=== PATIENT | male | born 1990 | race Caucasian/White ===

== ENCOUNTER 2020-11-09 18:42 | Emergency (ER) | payer OTHER ==
[~2020-11-09] VITALS: Ht 185.4 cm; Wt 103.6 kg
[~2020-11-09 18:42] MED LIST: DIVA125T31 PO; DIVA250T8 PO
[2020-11-09 20:40] VITALS: BP 134/82
== END 2020-11-09 20:40 | disposition home or self-care (01) ==
LOC: ER 18:43
DX: F07.81 Postconcussional syndrome (principal); R51.9 Headache, unspecified; M54.2 Cervicalgia; R42 Dizziness and giddiness; Z79.899 Other long term (current) drug therapy
CPT/HCPCS: 99282

== ENCOUNTER 2021-06-05 22:20 | Inpatient (IN) | payer MEDICAID, OTHER ==
[~2021-06-05] VITALS: Ht 182.9 cm; Wt 97.7 kg
[~2021-06-05 22:20] MED LIST changes: +temazepam 15mg capsule PO PRN
[2021-06-05] MEDS ORDERED: ondansetron/PF 4mg/2ml inj IV ONE (22:45)
[2021-06-05] MEDS ORDERED: normal saline 1000ML IV soln IVB ONE ×2 (22:45→23:30)
[2021-06-05 23:02] LABS: ALANINE AMINOTRANSFERASE 23 U/L (12-78); ALBUMIN 3.6 G/DL (3.4-5.0); ALKALINE PHOSPHATASE 51 IU/L (46-116); ANION GAP 13 (8-16); ASPARTATE AMINO TRANSFERASE 18 U/L (10-37); BILIRUBIN,TOTAL 0.3 MG/DL (0.1-1.0); BLOOD UREA NITROGEN 21 MG/DL (7-18); BUN/CREATININE RATIO 5.9 (5.4-32.0); CALCIUM 8.5 MG/DL (8.5-10.1); CHLORIDE 103 MMOL/L (99-107); CREATININE 3.53 MG/DL (0.60-1.10); GLUCOSE 81 MG/DL (70-104); LIPASE 68 U/L (73-393); POTASSIUM 3.7 MMOL/L (3.5-5.1); SODIUM 144 MMOL/L (135-145); TOTAL CARBON DIOXIDE 28.5 MMOL/L (24-32); TOTAL PROTEIN 7.1 G/DL (6.4-8.2); eGFR 21 ML/MIN
[2021-06-05] MEDS: morphine 4 MG/ML inj SYRINge IV PRN (23:05)
[2021-06-05 23:14] LABS: BASOPHILS % (AUTO) 0.6 % (0-1); EOSINOPHILS # (AUTO) 0.2 X10'3 (0-0.9); EOSINOPHILS % (AUTO) 3.2 % (0-6); HEMATOCRIT 43.4 % (42.0-52.0); HEMOGLOBIN 14.7 g/dl (14.0-17.9); LYMPHOCYTES # (AUTO) 1.9 X10'3 (1.1-4.8); LYMPHOCYTES % (AUTO) 25.5 % (21-51); MEAN CORPUSCULAR HEMOGLOBIN 29.5 PG (27.0-31.0); MEAN CORPUSCULAR HGB CONC 33.8 g/dL (33.0-36.5); MEAN CORPUSCULAR VOLUME 87.2 FL (78-98); MEAN PLATELET VOLUME 6.7 FL (7.4-10.4); MONOCYTES # (AUTO) 0.7 X10'3 (0-0.9); MONOCYTES % (AUTO) 9.2 % (2-12); NEUTROPHILS # (AUTO) 4.5 X10'3 (1.8-7.7); NEUTROPHILS % (AUTO) 61.5 % (42-75); PLATELET COUNT 258 X10'3 (140-440); RED BLOOD COUNT 4.98 X10'6 (4.70-6.10); RED CELL DISTRIBUTION WIDTH 13.8 % (11.5-14.5); WHITE BLOOD COUNT 7.3 X10'3 (4.5-11.0)
[2021-06-05] MEDS ORDERED: famotidine/PF 10 mg/ml inj IV ONE (23:30)
[2021-06-05] MEDS ORDERED: pantoprazole 40 MG vial IV ONE (23:30)
[2021-06-05] MEDS ORDERED: ondansetron 4mg rapidly disintigrating tab PO PRN (23:50)
[2021-06-05] MEDS ORDERED: bisacodyl 10mg suppository rectal RC PRN (23:50)
[2021-06-05] MEDS ORDERED: mag hydrox/Alum hydrox/simeth 30ml oral suspension PO PRN (23:50)
[2021-06-05] MEDS ORDERED: diphenhydrAMINE 25mg capsule PO PRN (23:50)
[2021-06-05] MEDS ORDERED: diphenhydrAMINE 50 mg/ml inj IV PRN (23:50)
[2021-06-05] MEDS ORDERED: acetaminophen 325mg tablet PO PRN ×2 (23:50)
[2021-06-05] MEDS ORDERED: HYDROmorphone inj. 0.5 MG/0.5 ML DISP.SYRIN IV PRN (23:50)
[2021-06-05] MEDS ORDERED: HYDROcodone/acetaminophen 5mg/325mg tablet PO PRN (23:50)
[2021-06-05] MEDS ORDERED: morphine 2 MG/ML inj. syringe IV PRN (23:50)
[2021-06-05] MEDS ORDERED: magnesium hydroxide 30ml (MOM) UD suspension PO PRN (23:50)
[2021-06-06 00:17] LABS: CREATINE KINASE 191 U/L (39-308); TROPONIN I < 0.04 NG/ML (0.0-0.05); VALPROATE 10 UG/ML (50-100)
[2021-06-06] MEDS: normal saline 1000ml 1,000 ML IV SCH ×3 (00:36→16:58)
[2021-06-06 00:53] LABS: PARTIAL THROMBOPLASTIN TIME 29 SECONDS (22-32)
[2021-06-06 00:54] LABS: C-REACTIVE PROTEIN 2.72 MG/DL (0.0-0.5); HEMOGLOBIN A1C 5.7 % (4.5-6.2); MAGNESIUM 2.1 MG/DL (1.5-2.4); PHOSPHORUS 4.8 MG/DL (2.3-4.5)
[2021-06-06] MEDS ORDERED: pantoprazole 40MG/NS 100ML BAG 100 ML IV ONE (01:00)
[2021-06-06 01:01] LABS: HIV ANTIBODY 1&2 RAPID NON-REACTIVE (Neg)
[2021-06-06 01:05] LABS: URINE AMPHETAMINE SCREEN NEGATIVE (Neg); URINE BARBITUATE SCREEN NEGATIVE (Neg); URINE BENZODIAZEPINES SCREEN NEGATIVE (Neg); URINE CANNABINOID SCREEN NEGATIVE (Neg); URINE COCAINE SCREEN NEGATIVE (Neg); URINE METHADONE SCREEN NEGATIVE (Neg); URINE OPIATE SCREEN POSITIVE (Neg); URINE PHENCYCLIDINE SCREEN NEGATIVE (Neg)
[2021-06-06 01:07] LABS: CLARITY,URINE CLEAR (Clear); COLOR,URINE YELLOW (Yellow); UA COLLECTION TYPE CLN CATCH MIDSTREAM
[2021-06-06 01:08] LABS: GLUCOSE, URINE NEGATIVE (Neg); KETONES,URINE NEGATIVE (Neg); LEUKOCYTE ESTERASE ,URINE NEGATIVE (Neg); NITRITES, URINE NEGATIVE (Neg); OCCULT BLOOD,URINE NEGATIVE (Neg); PROTEIN,URINE NEGATIVE (Neg); UROBILINOGEN,URINE 0.2 E.U/dL (0.2-1.0)
[2021-06-06] MEDS: morphine 4 MG/ML inj SYRINge IV PRN (02:24)
[2021-06-06] MEDS ORDERED: DULO60CA65 PO (06:16)
--- NOTE | 2021-06-06 06:34 | NUR ---
Received report from CONCETTA Bertrand. Awaiting patient arrival.
[2021-06-06 07:30] VITALS: BP 138/86
[2021-06-06] MEDS: duloxetine 30mg CAPSULE.DR PO SCH (07:52)
[2021-06-06] MEDS: docusate sod 100mg capsule PO SCH ×2 (07:52→19:47)
[2021-06-06] MEDS: HYDROcodone/acetaminophen 10/325mg tab PO PRN ×4 (07:57→22:25)
[2021-06-06] MEDS ORDERED: pantoprazole 40 MG vial IV SCH (08:00)
[2021-06-06] MEDS: heparin, porcine 5000 units/ml vial SQ SCH ×2 (08:00→19:49)
[2021-06-06] MEDS: divalproex sod 250mg ER (24-hour) tablet PO SCH ×2 (08:28→19:48)
[2021-06-06 09:43] LABS: BASOPHILS % (AUTO) 0.7 % (0-1); EOSINOPHILS # (AUTO) 0.2 X10'3 (0-0.9); EOSINOPHILS % (AUTO) 3.2 % (0-6); HEMATOCRIT 42.7 % (42.0-52.0); HEMOGLOBIN 14.3 g/dl (14.0-17.9); LYMPHOCYTES # (AUTO) 1.5 X10'3 (1.1-4.8); LYMPHOCYTES % (AUTO) 22.2 % (21-51); MEAN CORPUSCULAR HEMOGLOBIN 29.6 PG (27.0-31.0); MEAN CORPUSCULAR HGB CONC 33.5 g/dL (33.0-36.5); MEAN CORPUSCULAR VOLUME 88.3 FL (78-98); MEAN PLATELET VOLUME 6.7 FL (7.4-10.4); MONOCYTES # (AUTO) 0.7 X10'3 (0-0.9); NEUTROPHILS # (AUTO) 4.2 X10'3 (1.8-7.7); NEUTROPHILS % (AUTO) 62.9 % (42-75); PLATELET COUNT 242 X10'3 (140-440); RED BLOOD COUNT 4.84 X10'6 (4.70-6.10); RED CELL DISTRIBUTION WIDTH 14.3 % (11.5-14.5); WHITE BLOOD COUNT 6.7 X10'3 (4.5-11.0)
[2021-06-06 10:02] LABS: ALANINE AMINOTRANSFERASE 19 U/L (12-78); ALBUMIN 3.2 G/DL (3.4-5.0); ALBUMIN/GLOBULIN RATIO 0.8 (1.1-1.5); ALKALINE PHOSPHATASE 46 IU/L (46-116); ANION GAP 8 (8-16); ASPARTATE AMINO TRANSFERASE 14 U/L (10-37); BILIRUBIN,TOTAL 0.5 MG/DL (0.1-1.0); BLOOD UREA NITROGEN 21 MG/DL (7-18); BUN/CREATININE RATIO 6.2 (5.4-32.0); CHLORIDE 107 MMOL/L (99-107); CHOL/HDL RATIO 4.1 (0.00-4.99); CHOLESTEROL 131 MG/DL (0-200); GLUCOSE 79 MG/DL (70-104); HDL CHOLESTEROL 32 MG/DL (35-60); LDL CHOLESTEROL 70 MG/DL (50-100); POTASSIUM 4.1 MMOL/L (3.5-5.1); SODIUM 146 MMOL/L (135-145); TOTAL CARBON DIOXIDE 30.6 MMOL/L (24-32); TOTAL PROTEIN 7.2 G/DL (6.4-8.2); TRIGLYCERIDES 150 MG/DL (20-135); eGFR 22 ML/MIN
[2021-06-06 10:04] LABS: CALCIUM 8.6 MG/DL (8.5-10.1)
[2021-06-06] MEDS: ondansetron/PF 4mg/2ml inj IV PRN (10:31)
[2021-06-06 11:00] VITALS: BP 166/100
[2021-06-06] MEDS ORDERED: COVID-19 VACC, MRNA(PFIZER)/PF--BNT162b2 syringe IMVAC ONE (17:25)
[2021-06-06 18:00] VITALS: BP 143/84
--- NOTE | 2021-06-06 18:01 | NUR ---
Problems reprioritized. Patient report given, questions answered & plan of care reviewed with CONCETTA Wagner.
[2021-06-06] MEDS: pantoprazole 40 MG vial IV SCH ×2 (18:55→19:36)
[2021-06-07] VITALS: BP 151/86
[2021-06-07] MEDS: normal saline 1000ml 1,000 ML IV SCH ×4 (00:07→18:58)
[2021-06-07 06:08] LABS: BASOPHILS % (AUTO) 0.8 % (0-1); EOSINOPHILS # (AUTO) 0.3 X10'3 (0-0.9); EOSINOPHILS % (AUTO) 4.1 % (0-6); HEMATOCRIT 43.2 % (42.0-52.0); HEMOGLOBIN 14.4 g/dl (14.0-17.9); LYMPHOCYTES # (AUTO) 1.7 X10'3 (1.1-4.8); LYMPHOCYTES % (AUTO) 26.9 % (21-51); MEAN CORPUSCULAR HEMOGLOBIN 29.4 PG (27.0-31.0); MEAN CORPUSCULAR HGB CONC 33.4 g/dL (33.0-36.5); MEAN CORPUSCULAR VOLUME 88.1 FL (78-98); MEAN PLATELET VOLUME 6.9 FL (7.4-10.4); MONOCYTES # (AUTO) 0.6 X10'3 (0-0.9); MONOCYTES % (AUTO) 9.8 % (2-12); NEUTROPHILS # (AUTO) 3.7 X10'3 (1.8-7.7); NEUTROPHILS % (AUTO) 58.4 % (42-75); PLATELET COUNT 239 X10'3 (140-440); RED CELL DISTRIBUTION WIDTH 14.1 % (11.5-14.5); WHITE BLOOD COUNT 6.4 X10'3 (4.5-11.0)
[2021-06-07 06:24] LABS: ALANINE AMINOTRANSFERASE 16 U/L (12-78); ALBUMIN 2.7 G/DL (3.4-5.0); ALBUMIN/GLOBULIN RATIO 0.8 (1.1-1.5); ALKALINE PHOSPHATASE 45 IU/L (46-116); ANION GAP 8 (8-16); ASPARTATE AMINO TRANSFERASE 11 U/L (10-37); BILIRUBIN,TOTAL 0.3 MG/DL (0.1-1.0); BLOOD UREA NITROGEN 22 MG/DL (7-18); BUN/CREATININE RATIO 7.1 (5.4-32.0); CALCIUM 8.3 MG/DL (8.5-10.1); CHLORIDE 112 MMOL/L (99-107); CREATININE 3.09 MG/DL (0.60-1.10); GLUCOSE 84 MG/DL (70-104); POTASSIUM 4.3 MMOL/L (3.5-5.1); SODIUM 148 MMOL/L (135-145); TOTAL CARBON DIOXIDE 27.8 MMOL/L (24-32); eGFR 24 ML/MIN
[2021-06-07 07:00] VITALS: BP 124/74
[2021-06-07] MEDS: pantoprazole 40 MG vial IV SCH ×2 (07:50→20:00)
[2021-06-07] MEDS: duloxetine 30mg CAPSULE.DR PO SCH (07:51)
[2021-06-07] MEDS: docusate sod 100mg capsule PO SCH ×2 (07:51→20:00)
[2021-06-07] MEDS: divalproex sod 250mg ER (24-hour) tablet PO SCH ×2 (07:51→20:00)
[2021-06-07] MEDS: heparin, porcine 5000 units/ml vial SQ SCH ×2 (07:51→20:00)
[2021-06-07] MEDS: HYDROcodone/acetaminophen 10/325mg tab PO PRN ×3 (07:51→21:44)
[2021-06-07 08:59] LABS: HBSAG SCREEN Negative (Negative); HEP B CORE AB, TOT Negative (Negative); HEPATITIS C ANTIBODY <0.1 s/co ratio (0.0-0.9)
[2021-06-07] MEDS: morphine 2 MG/ML inj. syringe IV PRN ×2 (11:53→18:53)
[2021-06-07] MEDS ORDERED: COVID-19 VACC, MRNA(PFIZER)/PF--BNT162b2 syringe IMVAC ONE (12:00)
[2021-06-07 12:20] VITALS: BP 134/90
--- NOTE | 2021-06-07 13:09 | NUR ---
Renal consult: TC to RN who states pt with JAGDEEP though previously admitted in 2020 and with decreased renal function at that time as well. Per RN pharmacy manager as been consulted this admit. Noted Na 148, BUN 22, creatinine 3.09, and eGFR 24 with Phos 4.8 on 06/06. Informed RN will hold off on educating patient until seen by pharmacy manager to best determine appropriateness in education. Noted patient's renal diet got cancelled upon placement of RD consult, d/w RN recommendation to resume diet order in EMR. Will continue to follow closely. Addendum: 06/07/21 at [address] Amended: Links added.
[2021-06-07 18:00] VITALS: BP 138/83
--- NOTE | 2021-06-07 18:04 | NUR ---
Problems reprioritized. Patient report given, questions answered & plan of care reviewed with CONCETTA Paulson.
--- NOTE | 2021-06-07 18:38 | NUR ---
Patient in room [facility]. I have received report from Clarita HYLTON and had the opportunity to ask questions and assume patient care.
[2021-06-08] VITALS: BP 123/69
[2021-06-08] MEDS: HYDROcodone/acetaminophen 10/325mg tab PO PRN ×3 (00:07→07:28)
[2021-06-08 01:41] LABS: TOTAL PROTEIN,URINE RANDOM < 6.0 MG/DL
[2021-06-08] MEDS: normal saline 1000ml 1,000 ML IV SCH ×2 (03:04→08:35)
[2021-06-08 05:52] LABS: BASOPHILS # (AUTO) 0.1 X10'3 (0-0.2); BASOPHILS % (AUTO) 0.9 % (0-1); EOSINOPHILS # (AUTO) 0.3 X10'3 (0-0.9); EOSINOPHILS % (AUTO) 4.2 % (0-6); HEMATOCRIT 41.1 % (42.0-52.0); HEMOGLOBIN 13.7 g/dl (14.0-17.9); LYMPHOCYTES % (AUTO) 28.7 % (21-51); MEAN CORPUSCULAR HEMOGLOBIN 29.3 PG (27.0-31.0); MEAN CORPUSCULAR HGB CONC 33.2 g/dL (33.0-36.5); MEAN CORPUSCULAR VOLUME 88.2 FL (78-98); MEAN PLATELET VOLUME 6.9 FL (7.4-10.4); MONOCYTES # (AUTO) 0.7 X10'3 (0-0.9); MONOCYTES % (AUTO) 9.7 % (2-12); NEUTROPHILS # (AUTO) 3.9 X10'3 (1.8-7.7); NEUTROPHILS % (AUTO) 56.5 % (42-75); PLATELET COUNT 245 X10'3 (140-440); RED BLOOD COUNT 4.66 X10'6 (4.70-6.10)
[2021-06-08 06:29] LABS: ALANINE AMINOTRANSFERASE 19 U/L (12-78); ALBUMIN 2.9 G/DL (3.4-5.0); ALBUMIN/GLOBULIN RATIO 0.9 (1.1-1.5); ALKALINE PHOSPHATASE 47 IU/L (46-116); ANION GAP 10 (8-16); ASPARTATE AMINO TRANSFERASE 16 U/L (10-37); BILIRUBIN,TOTAL 0.3 MG/DL (0.1-1.0); BLOOD UREA NITROGEN 21 MG/DL (7-18); BUN/CREATININE RATIO 8.3 (5.4-32.0); CALCIUM 7.9 MG/DL (8.5-10.1); CHLORIDE 110 MMOL/L (99-107); CREATININE 2.54 MG/DL (0.60-1.10); GLUCOSE 89 MG/DL (70-104); LACTATE DEHYDROGENASE 166 U/L (85-227); POTASSIUM 4.2 MMOL/L (3.5-5.1); SODIUM 146 MMOL/L (135-145); TOTAL CARBON DIOXIDE 25.7 MMOL/L (24-32); eGFR 30 ML/MIN
--- NOTE | 2021-06-08 06:29 | NUR ---
Patient in room [facility]. I have received report from Adelia) CONCETTA and had the opportunity to ask questions and assume patient care.
--- NOTE | 2021-06-08 06:42 | NUR ---
Problems reprioritized. Patient report given, questions answered & plan of care reviewed with Jose Alfredo HYLTON.
[2021-06-08 07:00] VITALS: BP 150/91
[2021-06-08 07:13] LABS: HIV ANTIBODY 1&2 RAPID NON-REACTIVE (Neg)
[2021-06-08] MEDS: pantoprazole 40 MG vial IV SCH (07:27)
[2021-06-08] MEDS: duloxetine 30mg CAPSULE.DR PO SCH (07:28)
[2021-06-08] MEDS: docusate sod 100mg capsule PO SCH (07:29)
[2021-06-08] MEDS: heparin, porcine 5000 units/ml vial SQ SCH (07:29)
[2021-06-08] MEDS: divalproex sod 250mg ER (24-hour) tablet PO SCH (07:33)
[2021-06-08] MEDS: ondansetron/PF 4mg/2ml inj IV PRN (08:17)
[2021-06-08] MEDS: morphine 2 MG/ML inj. syringe IV PRN (10:58)
--- NOTE | 2021-06-08 11:11 | NUR ---
Report given to Maggie HYLTON to take over the care.
--- NOTE | 2021-06-08 12:21 | NUR ---
Discharge instructions reviewed with patient and patient verbalized understanding. Patient aware to call [employer] tomorrow and we will fax over orders phone number and address provided to patient and number for Dr Santacruz also provided to patient. Patient was given Lab slips for 3 weeks to have labs drawn once a week. All questions answered. Patient IV dc'd cannula intact. Patient ambulated to the [facility] with his ride by GEMMA Badillo.
[2021-06-10 11:12] LABS: ANTINUCLEAR ANTIBODIES Negative (Negative); COMPLEMENT C3, SERUM 125 mg/dL (82-167); COMPLEMENT C4, SERUM 28 mg/dL (12-38); HBSAG SCREEN Negative (Negative); HEPATITIS C ANTIBODY <0.1 s/co ratio (0.0-0.9)
== END 2021-06-08 12:13 | disposition home or self-care (01) | DRG 422 ==
LOC: ER 22:21 → ED HOLD 23:48 → UNDOADMIN 23:48 → SUR 3N 06-06 06:45
PROVIDERS: ADMIT Family Medicine; ATTEND Internal Medicine
PROC: XW023U6 Introduction of COVID-19 Vaccine into Muscle, Percutaneous Approach, New Technology Group 6 (ICD-10-PCS; principal; 2021-06-07)
DX: E86.0 Dehydration (principal); N17.0 Acute kidney failure with tubular necrosis; F31.9 Bipolar disorder, unspecified; K29.00 Acute gastritis without bleeding; E87.0 Hyperosmolality and hypernatremia; N18.9 Chronic kidney disease, unspecified; Z87.11 Personal history of peptic ulcer disease; Z87.828 Personal history of other (healed) physical injury and trauma; Z87.891 Personal history of nicotine dependence; Z23 Encounter for immunization; Z83.3 Family history of diabetes mellitus; Z82.3 Family history of stroke; Z80.8 Family history of malignant neoplasm of other organs or systems; Z79.899 Other long term (current) drug therapy
CPT/HCPCS: 36415; 71045; 74176; 76770; 80053; 80061; 80164; 80305; 81003; 82550; 82570; 83036; 83615; 83690; 83735; 83880; 84100; 84156; 84443; 84484; 85025; 85610; 85651; 85730; 86038; 86140; 86160; 86703; 86704; 86705; 86706; 86803; 87081; 87207; 87340; 91300; 93005; 96374; 99285; C9113; G0378; J1644; J2270; J2405; J3490; J7030

== ENCOUNTER 2024-01-04 12:50 | Emergency (ER) | payer MEDICAID ==
[~2024-01-04] VITALS: Ht 185.4 cm; Wt 100.0 kg
[~2024-01-04 12:50] MED LIST changes: -DIVA125T31 PO; +DULO60CA65 PO; -temazepam 15mg capsule PO PRN
[2024-01-04 13:40] LABS: BASOPHILS # (AUTO) 0.1 X10'3 (0-0.2); BASOPHILS % (AUTO) 1.1 % (0-1); EOSINOPHILS # (AUTO) 0.2 X10'3 (0-0.9); EOSINOPHILS % (AUTO) 2.2 % (0-6); HEMATOCRIT 45.8 % (42.0-52.0); HEMOGLOBIN 15.7 g/dl (14.0-17.9); LYMPHOCYTES # (AUTO) 1.4 X10'3 (1.1-4.8); LYMPHOCYTES % (AUTO) 18.7 % (21-51); MEAN CORPUSCULAR HEMOGLOBIN 28.9 PG (27.0-31.0); MEAN CORPUSCULAR HGB CONC 34.2 g/dL (33.0-36.5); MEAN CORPUSCULAR VOLUME 84.5 FL (78-98); MEAN PLATELET VOLUME 6.8 FL (7.4-10.4); MONOCYTES # (AUTO) 0.7 X10'3 (0-0.9); MONOCYTES % (AUTO) 9.2 % (2-12); NEUTROPHILS # (AUTO) 5.1 X10'3 (1.8-7.7); NEUTROPHILS % (AUTO) 68.8 % (42-75); PLATELET COUNT 264 X10'3 (140-440); RED BLOOD COUNT 5.41 X10'6 (4.70-6.10); RED CELL DISTRIBUTION WIDTH 13.1 % (11.5-14.5); WHITE BLOOD COUNT 7.4 X10'3 (4.5-11.0)
[2024-01-04 13:49] LABS: ALBUMIN 3.2 G/DL (3.4-5.0); ANION GAP 8 (8-16); BLOOD UREA NITROGEN 20 MG/DL (7-18); BUN/CREATININE RATIO 15.3 (10.0-20.0); CALCIUM 8.4 MG/DL (8.5-10.1); CHLORIDE 107 MMOL/L (99-107); CREATININE 1.31 MG/DL (0.60-1.10); GLUCOSE 93 MG/DL (70-104); POTASSIUM 3.7 MMOL/L (3.5-5.1); SODIUM 142 MMOL/L (135-145); TOTAL CARBON DIOXIDE 26.7 MMOL/L (24-32); eCRCL 92 ML/MIN; eGFR 64 ML/MIN
[2024-01-04 13:50] LABS: ETHANOL < 10 MG/DL (<10)
[2024-01-04] MEDS: LIDOcaine 2% Viscous 15ml cup MM ONE (14:00)
[2024-01-04] MEDS: mag hydrox/Alum hydrox/simeth 30ml oral suspension PO ONE (14:00)
[2024-01-04] MEDS ORDERED: ARIP15TA3 PO (17:12)
[2024-01-04] MEDS ORDERED: PANT20TA2 PO (17:12)
[2024-01-04] MEDS ORDERED: BUPR1FIL20 SL (17:12)
[2024-01-04] MEDS ORDERED: BUPR150T8 PO (17:12)
[2024-01-04 17:19] LABS: BILIRUBIN,URINE NEGATIVE (Neg); CLARITY,URINE CLEAR (Clear); COLOR,URINE YELLOW (Yellow); GLUCOSE, URINE NEGATIVE (Neg); KETONES,URINE NEGATIVE (Neg); LEUKOCYTE ESTERASE ,URINE NEGATIVE (Neg); NITRITES, URINE NEGATIVE (Neg); OCCULT BLOOD,URINE TRACE-INTACT (Neg); PROTEIN,URINE NEGATIVE (Neg); UROBILINOGEN,URINE 0.2 E.U/dL (0.2-1.0)
[2024-01-04 17:24] LABS: UA COLLECTION TYPE CLN CATCH MIDSTREAM
[2024-01-04 17:25] LABS: BACTERIA,URINE 1+ /HPF (Neg); RBC,URINE 0-2 /HPF (0-2); SQUAMOUS EPITHELIAL CELL,UR FEW /LPF (FEW); WBC CLUMPS,URINE FEW /HPF (NEGATIVE); WBC,URINE 0-4 /HPF (0-4)
[2024-01-04 17:47] LABS: URINE AMPHETAMINE SCREEN NEGATIVE (Neg); URINE BARBITUATE SCREEN NEGATIVE (Neg); URINE BENZODIAZEPINES SCREEN NEGATIVE (Neg); URINE CANNABINOID SCREEN NEGATIVE (Neg); URINE COCAINE SCREEN POSITIVE (Neg); URINE METHADONE SCREEN NEGATIVE (Neg); URINE OPIATE SCREEN NEGATIVE (Neg); URINE PHENCYCLIDINE SCREEN NEGATIVE (Neg)
[2024-01-04] MEDS: divalproex sod 250mg ER (24-hour) tablet PO SCH (20:19)
[2024-01-04] MEDS: buprenorphine/naloxone 8MG-2MG SUBlingual film SL SCH (20:19)
[2024-01-05] MEDS: traZODone 50mg tablet PO PRN (01:47)
[2024-01-05 06:03] VITALS: BP 126/81; PULSE 79; TEMP 97.5; O2SAT 95
[2024-01-05 08:25] VITALS: RESP 17
[2024-01-05] MEDS: pantoprazole 40mg Tablet.DR PO SCH (09:29)
[2024-01-05] MEDS: buPROPion SR 150mg tablet PO SCH (09:29)
[2024-01-05] MEDS: ARIPIPRAZOLE 15 MG TABLET PO SCH (09:30)
== END 2024-01-05 11:47 | disposition home or self-care (01) ==
LOC: ER 12:51
DX: F39 Unspecified mood [affective] disorder (principal); Z20.822 Contact with and (suspected) exposure to COVID-19; F19.10 Other psychoactive substance abuse, uncomplicated; F14.90 Cocaine use, unspecified, uncomplicated; F17.200 Nicotine dependence, unspecified, uncomplicated; F12.90 Cannabis use, unspecified, uncomplicated; Z72.89 Other problems related to lifestyle; F43.10 Post-traumatic stress disorder, unspecified; F31.9 Bipolar disorder, unspecified; Z79.899 Other long term (current) drug therapy
CPT/HCPCS: 36415; 80048; 80305; 80320; 81001; 85025; 87811; 99283; 99284; 99285